=== PATIENT | female | born 1970 | race Caucasian/White ===

== ENCOUNTER → 2018-10-18 | Outpatient (CLI) | payer OTHER ==
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
--- NOTE | 2018-10-19 08:15 | RADRPT ---
PROCEDURE: Right knee series CLINICAL INDICATION: Pain TECHNIQUE: AP weightbearing, PA weightbearing, lateral weightbearing and sunrise views of the right knee were obtained COMPARISON: None FINDINGS: Moderate degenerate joint disease of the right knee worse involving the medial compartment. No acute fracture or dislocation. No focal bony blastic or lytic lesion. No evidence of right knee joint effus ion. Soft tissues are unremarkable. IMPRESSION: Moderate degenerate joint disease right knee without acute fracture dislocation or joint effusion. RPTAT:AAJJ Physician Hilda Date Time Electronically viewed and signed by Taty Christina Physician on 10/19/2018 08:14 BM/
== END | disposition home or self-care (01) ==
LOC: HKI 14:50
PROVIDERS: ATTEND Orthopaedic Surgery Adult Reconstructive Orthopaedic Surgery
DX: M25.561 Pain in right knee (principal); Z98.1 Arthrodesis status; Z87.891 Personal history of nicotine dependence
CPT/HCPCS: 73564; Z7500; G0463